=== PATIENT | male | born 1955 | race Caucasian/White ===

== ENCOUNTER → 2017-03-08 | Outpatient (CLI) | payer BC ==
--- NOTE | 2017-03-08 13:00 | DI ---
PA /LATERAL CHEST X-RAY, 03/08/2017 10:39 AM : Clinical History: Left-sided pneumonia. Previous Exam: 09/19/2013. There is no acute soft tissue or bony abnormality. Heart size is normal. There is a coarse infiltrate involving the lingular segment of the left upper lobe with a left pleural effusion. The appearance i s not a classic alveolar infiltrate and this may be a resolving pneumonia. There is bronchiectasis of the left lower lobe as well as in the lingular segment. Mediastinal structures are normal. There are no pulmonary nodules. Reading: There is a lingular infiltrate consistent with pneumonia although this is not a classic alveolar infi ltrate. This patient may have had previous films more recent than our study from 2012. Comparison wit h any more recent film would be helpful.
== END ==
LOC: RAD 10:47
PROVIDERS: ATTEND Nurse Practitioner
DX: J18.9 Pneumonia, unspecified organism (principal); J90 Pleural effusion, not elsewhere classified
CPT/HCPCS: 71020

== ENCOUNTER → 2017-04-05 | Outpatient (CLI) | payer BC ==
--- NOTE | 2017-04-07 10:59 | DI ---
XR CXR 2VW PA/LAT,04/05/2017 10:47 AM: Clinical History: Left upper lobe pneumonia Previous Exam: None at this facility. Findings: PA and lateral views of the chest are obtained, and demonstrate some resolution of the airspace disea se within the left upper lobe. There is still some curvilinear densities which may represent scarring or some persistent pneumonia. Skeletal structures and cardiomediastinum are unremarkable. Impression: Vague persisting airspace disease within the left upper lobe most consistent with resolving pneumonia .
== END ==
LOC: RAD 10:35
PROVIDERS: ATTEND Nurse Practitioner
DX: J18.9 Pneumonia, unspecified organism (principal)
CPT/HCPCS: 71020